=== PATIENT | female | born 1980 | race Caucasian/White ===

== ENCOUNTER 2016-08-02 16:59 | Emergency (ER) | payer OTHER ==
[~2016-08-02] VITALS: Wt 68.9 kg
[~2016-08-02 16:59] MED LIST: AMOXICILLIN500 M3 PO; ATENOLOL50 M1 PO; AZITHROMYC1 GM/PACKE; BACTRIM DS 8001 TA1 PO; CELEBREX100 MG PO; CLINDAMYCIN HC300 MG PO; CYCLOBENZAPRINE10 MG PO; DELESTROGEN20 MG/ML IM; DIFLUCAN150 MG PO; EC NAPROSYN500 MG PO; EFFEXOR75 MG PO; ESTRACE2 MG PO; HYDROCODONE BIT1 T11 PO; KEFLEX500 MG PO; LEVAQUIN750 MG PO; LUPRON5 MG/M1 SC; MOTRIN800 MG PO; NAPROSYN500 MG PO; NORCO 325 MG-51 TAB PO; PARAFON FORTE500 MG PO; PERCOCET 325 MG1 TA2 PO; PRENATAL1 TA1 PO; PRILOSEC10 MG PO; PRILOSEC20 M1 PO; PYRIDIUM200 MG; TRAMADOL HCL50 MG PO; ZESTRIL10 MG PO; [UNRECOGNIZED DRUG - OTHER] PO
[2016-08-02] MEDS ORDERED: IBU800 M1 PO (17:03)
[2016-08-02] MEDS ORDERED: PRENATAL1 TA3 PO (17:03)
[2016-08-02] MEDS ORDERED: SEPTRA DS 800 M1 TAB PO (17:04)
[2016-08-02] MEDS ORDERED: [UNRECOGNIZED DRUG - OTHER] PO (17:04)
[2016-08-02] MEDS ORDERED: ACETAMINOPHEN PO (17:04)
[2016-08-02 18:13] LABS: BASO % 0.3 % (0.0-1.0); EOS # 0.1 10*3/uL (0.0-0.4); EOS % 0.8 % (1.0-4.0); HEMATOCRIT 36.2 % (37.0-47.0); HEMOGLOBIN 11.5 g/dl (12.0-16.0); LYMPH # 2.7 10*3/uL (1.3-4.4); LYMPH % 20.7 % (27.0-41.0); MEAN CELL VOLUME 89.2 fl (81.0-99.0); MEAN CORPUSCULAR HGB 28.3 pg (27.0-31.0); MEAN CORPUSCULAR HGB CONC 31.8 g/dl (33.0-37.0); MEAN PLATELET VOLUME 8.5 fl (9.6-12.3); MONO # 0.9 10*3/uL (0.1-1.0); MONO % 6.5 % (3.0-9.0); NEUT # 9.4 10*3/uL (2.3-7.9); NEUT % 71.4 % (47.0-73.0); PLATELET COUNT AUTOMATED 400 10*3/uL (130-400); RED BLOOD COUNT 4.06 10*6/uL (4.10-5.10); WHITE BLOOD COUNT 13.2 10*3/uL (4.8-10.8)
[2016-08-02 18:30] LABS: ALBUMIN 3.9 gm/dl (3.1-4.5); ALKALINE PHOSPHATASE 84 U/L (45-117); BILIRUBIN, TOTAL 0.1 mg/dl (0.2-1.0); BUN 4 mg/dl (7-24); CARBON DIOXIDE 27 mmol/L (21-32); CHLORIDE 106 mmol/L (98-107); EST GLOM FILT AFRICAN AMERICAN > 60 ml/min; GLUCOSE 80 mg/dL (65-99); POTASSIUM 3.5 mmol/L (3.5-5.1); SGOT/AST 16 IU/L (3-35); SGPT/ALT 15 U/L (12-78); SODIUM 142 mmol/L (136-145); TOTAL PROTEIN 7.8 gm/dL (6.4-8.2)
[2016-08-02] MEDS ORDERED: CLINDAMYCIN HC300 MG PO (19:58)
[2016-08-02] MEDS ORDERED: PERCOCET 325 MG1 TA2 PO (20:04)
[2016-08-03] MEDS ORDERED: CLINDAMYCIN HC300 MG PO (09:19)
== END 2016-08-02 21:41 | disposition home or self-care (01) ==
LOC: ED 16:59
PROVIDERS: Registered Nurse
DX: N61.1 Abscess of the breast and nipple (principal); Z79.899 Other long term (current) drug therapy

== ENCOUNTER 2016-09-01 21:05 | Emergency (ER) | payer OTHER ==
[~2016-09-01] VITALS: Ht 165.1 cm; Wt 68.0 kg
[~2016-09-01 21:05] MED LIST changes: +ACETAMINOPHEN PO; +IBU800 M1 PO; +PRENATAL1 TA3 PO; +SEPTRA DS 800 M1 TAB PO; +[UNRECOGNIZED DRUG - OTHER] PO
[2016-09-01] MEDS ORDERED: CLEOCIN HCL300 MG PO (21:38)
[2016-09-01] MEDS ORDERED: PAXIL20 M1 PO (21:39)
[2016-09-01] MEDS ORDERED: NEURONTIN300 MG PO (21:39)
[2016-09-01] MEDS ORDERED: CYCLOBENZAPRINE10 MG PO (21:39)
== END 2016-09-01 23:01 | disposition home or self-care (01) ==
LOC: ED 21:05
DX: S90.02XA Contusion of left ankle, initial encounter (principal); W21.07XA Struck by softball, initial encounter; Y93.64 Activity, baseball; Y92.9 Unspecified place or not applicable; Y99.9 Unspecified external cause status

== ENCOUNTER → 2017-05-01 | Outpatient (CLI) | payer OTHER ==
[~2017-05-01] MED LIST changes: +CLEOCIN HCL300 MG PO; +NEURONTIN300 MG PO; +PAXIL20 M1 PO
--- NOTE | ~2017-05-01 | PROC NOTE ---
[place], [place] PROCEDURE NOTE NAME: CARLA BERG UNIT #: [id number] ROOM: DOCTOR: RASHEEDAUSTYN BIRTHDATE: [birth year] DOS: 05/01/2017 MODIFIED BARIUM SWALLOW PHYSICIAN: Dr. Soto. RADIOLOGIST: Dr. Gibbons. BACKGROUND INFORMATION: The patient, a 37-year-old female was seen for a modified barium swallow. This test was ordered to view the anatomy and physiology of the swallowing mechanism. The patient reported that over the past couple of months, she has been experiencing foods frequently sticking in her throat, which have to be expelled. She noted no prior illness or medical problem and reports no significant medical history. She did report that she often experiences a dry mouth though. Respiratory status was within normal limits. Oral peripheral examination revealed natural teeth which were in good condition. Lingual, labial, and buccal skills were within normal limits in terms of strength, range of motion, and coordination. The patient receives a regular diet and thin liquids. METHODS AND MATERIALS USED FOR THE EXAM: The patient was positioned in the lateral plane and the examination was viewed under fluoroscopy. The patient was presented with a variety of consistencies to assess swallowing skills including applesauce mixed with barium presented in half teaspoon amounts, barium-coated cookie and sandwich given in bite size pieces and thin liquid barium taken independently by cup. ORAL PHASE: Unremarkable. PHARYNGEAL PHASE: The pharyngeal swallow occurred within a timely manner. During the swallow, laryngeal elevation and epiglottic function were within normal limits. No penetration or aspiration occurred. The patient did exhibit pooling in the vallecula of a mild amount with barium coated cookie and sandwich. She did independently clear this with subsequent swallow or liquid wash. ESOPHAGEAL PHASE: This phase of the swallow was not formally assessed during this examination. IMPRESSIONS AND RECOMMENDATIONS: Based upon assessment results, this 37-year-old patient presented with swallowing skills that are within functional limits. She did exhibit some pooling in the vallecula with solids; however, was able to clear it independently. Recommend she remains on regular diet, recommend implementation of safe swallow precautions such as taking drinks prior to eating to help moisten mouth, small bites and sips, chewing thoroughly and alternating liquids and solids. The patient was educated on results and recommendations and verbalized understanding. Thank you very much for this referral. Should you have any questions regarding this patient, please contact the speech pathologist at [phone]. [place], [place] PROCEDURE NOTE NAME: CARLA BERG UNIT #: [id number] ROOM: DOCTOR: AUSTYN IQBAL BIRTHDATE: [birth year] AUSTYN IQBAL CM:PROCNOTE:PROCEDURE NOTE [id number] AUSTYN IQBAL
--- NOTE | ~2017-05-01 | SLPPN ---
[place], [place] OUTPATIENT SERVICES DIRECTOR PROGRESS NOTE NAME: CARLA EBRG UNIT #: [id number] ROOM: DOCTOR: JOANIE ROTH DO Speech Language Pathology Treatment Note Page 1 1 of Patient Name: CARLA BERG Date: 05/01/2017 11:13 AM : 1980 SOC Date: 05/01/2017 Provider: [facility] Provider #: [id number] Treating Clinician: DANIEL Bender-OUTPATIENT SERVICES DIRECTOR Referring Physician: JOANIE ROTH Onset Date Description Code Primary Diagnosis: 05/01/2017 A0000 NO DIAGNOSIS SENT TO THE [facility] Time In: 10:00 AM Time Out: 11:00 AM OUTPATIENT SERVICES DIRECTOR Interventions and CPT Codes Consisted of: CPT Code Modifiers Minutes Units MOTION FLUOROSCOPY/SWALLOW 24580 60 1 Total Minutes: 60 Total Timed Minutes: 0 Total Untimed Minutes: 60 Total Units: 1 Total Timed Units: 0 Total Untimed Units: 1 05/01/2017 11:14:28 AM DANIEL Bender-JOHNNY Date/Time State License #: [id number] CM:BENJI 1117 1117 [facility]
--- NOTE | ~2017-05-01 | SLPPOC ---
[place], [place] PROCUREMENT AGENT PLAN OF CARE NAME: CARLA BERG UNIT #: [id number] ROOM: DOCTOR: JOANIE ROTH DO Speech Language Pathology Plan of Care Page 1 1 (Initial Evaluation) of Patient Name: CARLA BERG Date: 05/01/2017 11:12 AM : 1980 SOC Date: 05/01/2017 Provider: [facility] Provider #: [id number] Treating Clinician: DANIEL Bender-PROCUREMENT AGENT Referring Physician: JOANIE ROTH 1 Visits From SOC: Onset Date Description Code Primary Diagnosis: 05/01/2017 A0000 NO DIAGNOSIS SENT TO THE [facility] Subjective Comments: Initial evaluation created to initiate the electronic medical record. Please see [employer] for details. Initial Level Goals Functional Limitation Reporting Swallowing G8996 - Swallowing functional limitation, current status at therapy episode outset and at reporting intervals Current Status: CI - At least 1 percent but less than 20 percent impaired, limited or restricted G8997 - Swallowing functional limitation, projected goal status, at therapy episode outset, at reporting intervals, and at discharge or to end reporting Goal Status: CI - At least 1 percent but less than 20 percent impaired, limited or restricted G8998 - Swallowing functional limitation, discharge status, at discharge from therapy or to end reporting Discharge Status: CI - At least 1 percent but less than 20 percent impaired, limited or restricted 05/01/2017 11:13:39 AM JOANIE ROTH Date/Time DANIEL Bender-PROCUREMENT AGENT Date I certify the need for these services furnished under this plan of treatment while under my care. State License #: [id number] CM:SLPPOC 1117 1117 [facility]
--- NOTE | ~2017-05-01 | SLPIE ---
[place], [place] HYDRODYNAMICS PROFESSOR INITIAL EVALUATION NAME: CARLA BERG UNIT #: [id number] ROOM: DOCTOR: JOANIE ROTH DO Speech Language Pathology Initial Evaluation Page 1 1 of Patient Name: CARLA BERG Date: 05/01/2017 11:12 AM : 1980 SOC Date: 05/01/2017 Provider: [facility] Provider #: [id number] Treating Clinician: DANIEL Bender-HYDRODYNAMICS PROFESSOR Referring Physician: JOANIE ROTH Patient Information Address: [address] [place] [address] Physician: JOANIE ROTH Physician #: [facility], [facility], Zip: [place], [place] [address] Occupation: Unknown # of Approved Visits: 0 Gender: Female Tube Draw Helper: ASUTEN ROALEY Rehabilitation Information / History Onset Date Code Description Primary Diagnosis: 05/01/2017 A0000 NO DIAGNOSIS SENT TO THE [facility] Subjective Comments: Initial evaluation created to initiate the electronic medical record. Please see [employer] for details. Rehabilitation Information / History Clinical Findings Functional Goals Functional Limitation Reporting Swallowing G8996 - Swallowing functional limitation, current status at therapy episode outset and at reporting intervals Current Status: CI - At least 1 percent but less than 20 percent impaired, limited or restricted G8997 - Swallowing functional limitation, projected goal status, at therapy episode outset, at reporting intervals, and at discharge or to end reporting Goal Status: CI - At least 1 percent but less than 20 percent impaired, limited or restricted G8998 - Swallowing functional limitation, discharge status, at discharge from therapy or to end reporting Discharge Status: CI - At least 1 percent but less than 20 percent impaired, limited or restricted 05/01/2017 11:13:39 AM DANIEL Bender-JOHNNY Date/Time [place], [place] HYDRODYNAMICS PROFESSOR INITIAL EVALUATION NAME: CARLA BERG UNIT #: [id number] ROOM: DOCTOR: JOANIE ROTH DO [facility] License #: [id number] CM:SLPIE 1117 1117 [facility] TH[facility]
[2017-05-01 09:50] LABS: BASO # 0.1 10*3/uL (0.0-0.1); EOS # 0.1 10*3/uL (0.0-0.4); EOS % 1.5 % (1.0-4.0); HEMATOCRIT 36.3 % (37.0-47.0); HEMOGLOBIN 11.3 g/dl (12.0-16.0); LYMPH # 2.2 10*3/uL (1.3-4.4); LYMPH % 36.5 % (27.0-41.0); MEAN CELL VOLUME 80.5 fl (81.0-99.0); MEAN CORPUSCULAR HGB 25.1 pg (27.0-31.0); MEAN CORPUSCULAR HGB CONC 31.1 g/dl (33.0-37.0); MEAN PLATELET VOLUME 9.5 fl (9.6-12.3); MONO # 0.6 10*3/uL (0.1-1.0); MONO % 9.3 % (3.0-9.0); NEUT # 3.1 10*3/uL (2.3-7.9); NEUT % 51.4 % (47.0-73.0); PLATELET COUNT AUTOMATED 364 10*3/uL (130-400); RED BLOOD COUNT 4.51 10*6/uL (4.10-5.10); RED CELL DISTRI WIDTH 15.9 % (0-14.5); WHITE BLOOD COUNT 5.9 10*3/uL (4.8-10.8)
[2017-05-01 10:12] LABS: ALBUMIN 3.5 gm/dl (3.1-4.5); BUN 3 mg/dl (7-24); CHLORIDE 102 mmol/L (98-107); CREATININE 0.64 mg/dL (0.55-1.02); POTASSIUM 3.6 mmol/L (3.5-5.1); SGOT/AST 15 IU/L (3-35); SGPT/ALT 16 U/L (12-78); SODIUM 137 mmol/L (136-145); TOTAL PROTEIN 7.4 gm/dL (6.4-8.2)
[2017-05-01 10:21] LABS: ALKALINE PHOSPHATASE 82 U/L (45-117)
== END | disposition home or self-care (01) ==
LOC: RAD/SH 09:21 → LAB 09:21 → RAD/SH 09:30
PROVIDERS: Internal Medicine
DX: R13.14 Dysphagia, pharyngoesophageal phase (principal); I10 Essential (primary) hypertension

== ENCOUNTER → 2017-05-17 | Outpatient (CLI) | payer OTHER ==
[2017-05-17 14:28] LABS: IRON 22 ug/dL (50-170); TOTAL IRON BINDING CAPACITY 418 ug/dl (250-450)
== END | disposition home or self-care (01) ==
LOC: LAB 13:43
PROVIDERS: Internal Medicine
DX: D64.9 Anemia, unspecified (principal)

== ENCOUNTER → 2018-03-20 | Outpatient (CLI) | payer OTHER | LOC: RAD 18:14 | DX: M47.817 Spondylosis without myelopathy or radiculopathy, lumbosacral region (principal); M47.812 Spondylosis without myelopathy or radiculopathy, cervical region; M51.37 Other intervertebral disc degeneration, lumbosacral region; M25.511 Pain in right shoulder; M79.601 Pain in right arm; R53.1 Weakness ==

== ENCOUNTER 2018-08-21 18:47 | Emergency (ER) | payer OTHER ==
[~2018-08-21] VITALS: Ht 165.1 cm; Wt 68.0 kg
[2018-08-21] MEDS ORDERED: ZOFRAN4 MG PO (21:23)
[2018-08-21] MEDS ORDERED: AUGMENTIN 875875 MG PO (21:23)
[2018-08-21] MEDS ORDERED: IMITREX100 MG PO (21:23)
== END 2018-08-21 21:26 | disposition home or self-care (01) ==
LOC: ED 18:47
DX: J01.90 Acute sinusitis, unspecified (principal); G43.909 Migraine, unspecified, not intractable, without status migrainosus; Z79.899 Other long term (current) drug therapy

== ENCOUNTER → 2019-02-19 | Outpatient (CLI) | payer OTHER ==
[~2019-02-19] MED LIST changes: +AUGMENTIN 875875 MG PO; +IMITREX100 MG PO; +ZOFRAN4 MG PO
--- NOTE | ~2019-02-19 | EKG ---
[place], [place] ELECTROCARDIOGRAM REPORT NAME: CARLA BERG UNIT #: [id number] ROOM: DOCTOR: JULIA DRAFT REPORT BIRTHDATE: [birth year] [facility] Test Date: 2019-02-19 Test Time: 17:45:39 Pat Name: CARLA BERG Department: Room: Gender: F Patrol Inspector: : 1980 Requested By: ANA REYNOLDS Order Number: [id number] Reading MD: Tish Childress Measurements Intervals [place] Rate: 63 P: 55 TN: 152 QRS: 32 QRSD: 92 T: 40 QT: 400 QTc: 410 Interpretive Statements Sinus rhythm No previous ECG available for comparison Electronically Signed On 02-22-2019 7:35:08 PST by Tish Childress CM:EKGRPT:ELECTROCARDIOGRAM REPORT [id number] ANA DUMONT DRAFT REPORT ANA REYNOLDS
== END | disposition home or self-care (01) ==
LOC: CARD 17:34
DX: Z51.81 Encounter for therapeutic drug level monitoring (principal); Z79.899 Other long term (current) drug therapy

== ENCOUNTER 2019-07-02 15:55 | Emergency (ER) | payer OTHER ==
[~2019-07-02] VITALS: Ht 165.1 cm; Wt 77.1 kg
[2019-07-02 16:36] LABS: BASO % 0.4 % (0.0-1.0); HEMATOCRIT 41.1 % (37.0-47.0); HEMOGLOBIN 13.5 g/dl (12.0-16.0); MEAN CELL VOLUME 85.3 fl (81.0-99.0); MEAN CORPUSCULAR HGB CONC 32.8 g/dl (33.0-37.0); MEAN PLATELET VOLUME 9.3 fl (9.6-12.3); MONO # 0.7 10*3/uL (0.1-1.0); MONO % 6.3 % (3.0-9.0); NEUT % 74.1 % (47.0-73.0); PLATELET COUNT AUTOMATED 398 10*3/uL (130-400); RED BLOOD COUNT 4.82 10*6/uL (4.10-5.10); RED CELL DISTRI WIDTH 13.5 % (0-14.5); WHITE BLOOD COUNT 10.8 10*3/uL (4.8-10.8)
[2019-07-02 16:52] LABS: ALBUMIN 4.4 gm/dl (3.1-4.5); ALKALINE PHOSPHATASE 82 U/L (45-117); BUN 4 mg/dl (7-24); CHLORIDE 105 mmol/L (98-107); CREATININE 0.82 mg/dL (0.55-1.02); POTASSIUM 3.7 mmol/L (3.5-5.1); SGOT/AST 12 IU/L (3-35); SGPT/ALT 18 U/L (12-78); SODIUM 139 mmol/L (136-145); TOTAL PROTEIN 8.4 gm/dL (6.4-8.2)
== END 2019-07-02 19:37 | disposition home or self-care (01) ==
LOC: ED 15:55
PROVIDERS: Emergency Medicine
DX: G25.2 Other specified forms of tremor (principal); T43.295A Adverse effect of other antidepressants, initial encounter; R26.2 Difficulty in walking, not elsewhere classified; G43.909 Migraine, unspecified, not intractable, without status migrainosus; F17.200 Nicotine dependence, unspecified, uncomplicated; Z79.2 Long term (current) use of antibiotics; Z79.899 Other long term (current) drug therapy; Y92.098 Other place in other non-institutional residence as the place of occurrence of the external cause

== ENCOUNTER → 2020-02-20 | Outpatient (CLI) | payer OTHER ==
[~2020-02-20] MED LIST changes: +K-TAB20 MEQ PO
== END | disposition home or self-care (01) ==
LOC: COVID19 02-18 10:11
PROVIDERS: ATTEND Nurse Practitioner Primary Care
DX: U07.1 COVID-19 (principal)

== ENCOUNTER 2020-03-05 19:44 | Emergency (ER) | payer OTHER ==
[~2020-03-05] VITALS: Ht 165.1 cm; Wt 70.8 kg
[~2020-03-05 19:44] MED LIST changes: -K-TAB20 MEQ PO
[2020-03-05 20:14] LABS: BASO % 0.4 % (0.0-1.0); EOS # 0.1 10*3/uL (0.0-0.4); EOS % 1.3 % (1.0-4.0); HEMATOCRIT 35.6 % (37.0-47.0); LYMPH # 2.6 10*3/uL (1.3-4.4); LYMPH % 30.3 % (27.0-41.0); MEAN CELL VOLUME 81.7 fl (81.0-99.0); MEAN CORPUSCULAR HGB 27.5 pg (27.0-31.0); MEAN CORPUSCULAR HGB CONC 33.7 g/dl (33.0-37.0); MEAN PLATELET VOLUME 8.7 fl (9.6-12.3); MONO # 0.9 10*3/uL (0.1-1.0); MONO % 10.3 % (3.0-9.0); NEUT # 4.9 10*3/uL (2.3-7.9); NEUT % 57.5 % (47.0-73.0); PLATELET COUNT AUTOMATED 332 10*3/uL (130-400); RED BLOOD COUNT 4.36 10*6/uL (4.10-5.10); RED CELL DISTRI WIDTH 12.9 % (0-14.5); WHITE BLOOD COUNT 8.4 10*3/uL (4.8-10.8)
[2020-03-05 20:54] LABS: ALBUMIN 3.6 gm/dl (3.1-4.5); ALKALINE PHOSPHATASE 65 U/L (45-117); BUN 6 mg/dl (7-24); CHLORIDE 95 mmol/L (98-107); CREATININE 0.87 mg/dL (0.55-1.02); POTASSIUM 2.6 mmol/L (3.5-5.1); SGOT/AST 14 IU/L (3-35); SGPT/ALT 16 U/L (12-78); SODIUM 135 mmol/L (136-145); TOTAL PROTEIN 7.4 gm/dL (6.4-8.2)
[2020-03-05 21:04] LABS: TROPONIN I < 0.015 ng/ml (<0.045)
[2020-03-06] MEDS ORDERED: K-TAB20 MEQ PO (07:18)
== END 2020-03-06 07:49 | disposition home or self-care (01) ==
LOC: ED 19:44
PROVIDERS: Internal Medicine
DX: E87.6 Hypokalemia (principal); Z79.899 Other long term (current) drug therapy

== ENCOUNTER → 2020-03-05 | Outpatient (CLI) | payer OTHER | END | disposition home or self-care (01) | LOC: MAMMO 02-20 11:00 | PROVIDERS: ATTEND Obstetrics & Gynecology | DX: Z12.31 Encounter for screening mammogram for malignant neoplasm of breast (principal) ==

== ENCOUNTER → 2020-05-28 | Outpatient (CLI) | payer BC ==
[~2020-05-28] MED LIST changes: +K-TAB20 MEQ PO
== END | disposition home or self-care (01) ==
LOC: RAD 11:53
PROVIDERS: ATTEND Nurse Practitioner Primary Care
DX: M47.817 Spondylosis without myelopathy or radiculopathy, lumbosacral region (principal); M48.07 Spinal stenosis, lumbosacral region; M54.2 Cervicalgia; M54.41 Lumbago with sciatica, right side

== ENCOUNTER → 2020-06-23 | Outpatient (CLI) | payer BC | END | disposition home or self-care (01) | LOC: LAB 12:03 | PROVIDERS: ATTEND Student in an Organized Health Care Education/Training Program | DX: Z86.14 Personal history of Methicillin resistant Staphylococcus aureus infection (principal) ==

== ENCOUNTER → 2021-11-29 | Day surgery (SDC) | payer OTHER ==
[~2021-11-29] VITALS: Ht 165.1 cm; Wt 63.5 kg
[~2021-11-29] MED LIST changes: +BUSPAR15 MG PO; +DOXEPIN HCL100 MG PO; +SEROQUEL100 MG PO; +ZANAFLEX4 M2 PO
[2021-11-29 06:30] VITALS: BP 122/74
[2021-11-29 08:10] VITALS: BP 87/63
[2021-11-29 08:25] VITALS: BP 131/83
[2021-11-29 08:38] VITALS: BP 115/62
== END | disposition home or self-care (01) ==
LOC: SDC 11-25 13:15
PROVIDERS: ATTEND Obstetrics & Gynecology
DX: N76.6 Ulceration of vulva (principal); N85.2 Hypertrophy of uterus; N94.10 Unspecified dyspareunia; N92.0 Excessive and frequent menstruation with regular cycle; F52.0 Hypoactive sexual desire disorder; F41.9 Anxiety disorder, unspecified; F32.9 Major depressive disorder, single episode, unspecified; Z79.899 Other long term (current) drug therapy

== ENCOUNTER → 2023-05-24 | Outpatient (CLI) | payer OTHER | END | disposition home or self-care (01) | LOC: RESCLI 12:56 | PROVIDERS: ATTEND Student in an Organized Health Care Education/Training Program | DX: R63.5 Abnormal weight gain (principal); N32.81 Overactive bladder; G47.00 Insomnia, unspecified; G43.001 Migraine without aura, not intractable, with status migrainosus; F41.9 Anxiety disorder, unspecified; M79.7 Fibromyalgia; K21.9 Gastro-esophageal reflux disease without esophagitis; F19.10 Other psychoactive substance abuse, uncomplicated; Z98.890 Other specified postprocedural states; Z82.49 Family history of ischemic heart disease and other diseases of the circulatory system; Z87.891 Personal history of nicotine dependence; Z79.899 Other long term (current) drug therapy ==

== ENCOUNTER → 2024-02-07 | Outpatient (CLI) | payer OTHER | END | disposition home or self-care (01) | LOC: US 11:00 | PROVIDERS: ATTEND Nurse Practitioner Women's Health | DX: N63.20 Unspecified lump in the left breast, unspecified quadrant (principal) ==

== ENCOUNTER → 2024-05-30 | Outpatient (CLI) | payer OTHER ==
[~2024-05-30] MED LIST changes: +SEPTDS PO
== END | disposition home or self-care (01) ==
LOC: RESCLI 01:53
PROVIDERS: ATTEND Internal Medicine
DX: R63.5 Abnormal weight gain (principal); N17.9 Acute kidney failure, unspecified; R53.83 Other fatigue; F19.10 Other psychoactive substance abuse, uncomplicated; F17.200 Nicotine dependence, unspecified, uncomplicated; M79.7 Fibromyalgia; G43.001 Migraine without aura, not intractable, with status migrainosus; G47.00 Insomnia, unspecified; G47.33 Obstructive sleep apnea (adult) (pediatric); N95.1 Menopausal and female climacteric states; Z79.899 Other long term (current) drug therapy; Z98.890 Other specified postprocedural states